=== PATIENT | male | born 1965 | race Caucasian/White ===

== ENCOUNTER 2023-03-29 20:13 | Emergency (ER) | payer MEDICARE, OTHER ==
[~2023-03-29] VITALS: Ht 170.2 cm; Wt 71.3 kg
[2023-03-29 20:41] VITALS: TEMP 98
[2023-03-29 21:16] LABS: EOSINOPHILS % (AUTO) 2.6 % (1.0-6.0); HEMATOCRIT 40.3 % (41-53); HEMOGLOBIN 13.3 g/dL (13.5-17.5); LYMPHOCYTES # (AUTO) 2.9 K/uL (1.0-4.8); MEAN CORPUSCULAR HEMOGLOBIN 27.3 pg (26.0-34.0); MEAN CORPUSCULAR VOLUME 83 fL (80-100); MONOCYTES # (AUTO) 0.9 K/uL (0.1-1.0); MONOCYTES % (AUTO) 12.9 % (2.0-9.0); NEUTROPHILS # (AUTO) 3.2 K/uL (1.8-7.7); NEUTROPHILS % (AUTO) 43.5 % (40.0-70.0); PLATELET COUNT (AUTO) 296 K/uL (150-450); RED BLOOD CELL COUNT(AUTO) 4.88 MIL/uL (4.50-5.90); RED CELL DISTRIBUTION WIDTH 16.2 % (11.5-14.5)
[2023-03-29 21:27] LABS: ANION GAP 11 mmol/L (8-16); CALCIUM, TOTAL 9.3 mg/dL (8.8-10.5); CARBON DIOXIDE 25 mmol/L (22-29); CHLORIDE 106 mmol/L (98-107); CREATININE 1.25 mg/dL (0.60-1.30); GLOMERULAR FILTR. RATE CALC 59 mL/min (>60); GLUCOSE,RANDOM 103 mg/dL (70-110); POTASSIUM 3.9 mmol/L (3.5-5.1); SODIUM SERUM 142 mmol/L (136-145)
[2023-03-29 21:33] LABS: ALANINE AMINOTRANSFERASE 71 U/L (12-78); ALBUMIN 3.6 g/dL (3.4-5.0); ALKALINE PHOSPHATASE 92 U/L (46-116); ASPARTATE AMINOTRANSFERASE 56 U/L (15-37); BILIRUBIN,TOTAL 0.2 mg/dL (0.1-1.0); TOTAL PROTEIN, SERUM 6.9 g/dL (6.4-8.2)
[2023-03-29 22:13] VITALS: BP 115/60; PULSE 60; RESP 17
== END 2023-03-29 23:12 | disposition home or self-care (01) ==
LOC: EMS 20:16
DX: F20.9 Schizophrenia, unspecified (principal); F41.9 Anxiety disorder, unspecified; Z87.891 Personal history of nicotine dependence
CPT/HCPCS: 99283; 80053; 85025; 36415; G0480

== ENCOUNTER 2025-02-01 18:37 | Inpatient (IN) | payer MEDICARE, MEDICAID ==
[~2025-02-01] VITALS: Ht 170.2 cm; Wt 83.5 kg
[2025-02-01 22:43] LABS: BASOPHILS % (AUTO) 0.8 % (0.0-2.0); EOSINOPHILS % (AUTO) 2.5 % (1.0-6.0); HEMATOCRIT 47.6 % (41-53); LYMPHOCYTES # (AUTO) 3.2 K/uL (1.0-4.8); LYMPHOCYTES % (AUTO) 35.4 % (22.0-44.0); MEAN CORPUSCULAR HEMOGLOBIN 29.8 pg (26.0-34.0); MEAN CORPUSCULAR HGB CONC 33.6 G/dL (31.0-37.0); MEAN CORPUSCULAR VOLUME 89 fL (80-100); MONOCYTES % (AUTO) 11.3 % (2.0-9.0); NEUTROPHILS # (AUTO) 4.5 K/uL (1.8-7.7); PLATELET COUNT (AUTO) 251 K/uL (150-450); RED BLOOD CELL COUNT(AUTO) 5.36 MIL/uL (4.50-5.90); RED CELL DISTRIBUTION WIDTH 14.1 % (11.5-14.5); WHITE BLOOD COUNT (AUTO) 8.9 K/uL (4.5-11.0)
[2025-02-01 22:52] LABS: ANION GAP 5 mmol/L (8-16); CALCIUM, TOTAL 9.2 mg/dL (8.8-10.5); CARBON DIOXIDE 29 mmol/L (22-29); CHLORIDE 104 mmol/L (98-107); CREATININE 1.04 mg/dL (0.60-1.30); GLOMERULAR FILTR. RATE CALC > 60 mL/min (>60); GLUCOSE,RANDOM 82 mg/dL (70-110); POTASSIUM 4.1 mmol/L (3.5-5.1); SODIUM SERUM 138 mmol/L (136-145); UREA NITROGEN, BLOOD 17 mg/dL (7-18)
[2025-02-01 23:16] LABS: APPEARANCE,URINE CLEAR (CLEAR); BILIRUBIN,URINE NEGATIVE (NEGATIVE); COLOR,URINE LIGHT YELLOW (YELLOW); GLUCOSE, URINE (UA) NEGATIVE (NEGATIVE); KETONES,URINE NEGATIVE (NEGATIVE); LEUKOCYTE ESTERASE ,URINE NEGATIVE (NEGATIVE); NITRATE,URINE NEGATIVE (NEGATIVE); OCCULT BLOOD,URINE NEGATIVE (NEGATIVE); PROTEIN,URINE NEGATIVE (NEGATIVE); UROBILINOGEN,URINE <=1.0 mg/dL (<=1.0)
[2025-02-01 23:24] LABS: ALCOHOL, URINE DRUG SCREEN NEGATIVE (NEGATIVE); AMPHET/METH SCREEN,URINE NEGATIVE (NEGATIVE); BARBITURATE SCREEN, URINE NEGATIVE (NEGATIVE); BENZODIAZEPINES SCREEN,URINE NEGATIVE (NEGATIVE); CANNABINOID SCREEN,URINE NEGATIVE (NEGATIVE); COCAINE SCREEN,URINE NEGATIVE (NEGATIVE); METHADONE SCREEN, URINE NEGATIVE (NEGATIVE); OPIATE SCREEN,URINE NEGATIVE (NEGATIVE); PHENCYCLIDINE SCREEN,URINE NEGATIVE (NEGATIVE)
[2025-02-02] MEDS: haloperidoL LACTATE 5 MG/ML VIAL IM ONE (01:48)
[2025-02-02] MEDS: LORazepam 2 MG/ML VIAL IM ONE (01:49)
[2025-02-02] MEDS: DiphenhydrAMINE HCL 50 MG/ML VIAL IM ONE (01:49)
[2025-02-02 02:12] LABS: COVID AG,FIA SOURCE NASAL SWAB
[2025-02-02 03:02] LABS: SARS-COV2 (COVID) ANTIGEN,FIA Negative (Negative)
[2025-02-02] MEDS ORDERED: LEVO137T24 PO (05:10)
[2025-02-02] MEDS ORDERED: FLUT1BLS19 IH (05:10)
[2025-02-02] MEDS ORDERED: ALBU18HF12 IH (05:10)
[2025-02-02] MEDS ORDERED: PROP10TA73 PO (05:10)
[2025-02-02] MEDS ORDERED: RISP-32 PO (05:10)
[2025-02-02] MEDS ORDERED: HALO5TAB23 PO (05:10)
[2025-02-02] MEDS ORDERED: DIVA-112 PO (05:10)
[2025-02-02] MEDS ORDERED: MELA3TAB89 PO (05:10)
[2025-02-02] MEDS ORDERED: CHOL25TA4 PO (05:10)
[2025-02-02] MEDS ORDERED: haloperidoL 5 MG TABLET PO PRN (11:30)
[2025-02-02] MEDS ORDERED: LORazepam 2 MG TABLET PO PRN (11:30)
[2025-02-02 16:11] VITALS: O2SAT 99
[2025-02-02 18:57] VITALS: BP 119/99; PULSE 66; RESP 16; TEMP 97.3; O2SAT 97
[2025-02-02] MEDS ORDERED: ALBUTEROL SULFATE HFA 90 MCG/PUFF 8 GM INHALER IH PRN (20:00)
[2025-02-02 20:10] VITALS: BP 124/82; PULSE 80; RESP 18; TEMP 97.6; O2SAT 98
[2025-02-03] MEDS: LEVOTHYROXINE SODIUM 137 MCG TABLET PO SCH (06:56)
[2025-02-03] MEDS: FLUTICASONE/VILANTEROL 200-25 MCG/INH INHALER [14] IH SCH (08:11)
[2025-02-03] MEDS: CHOLECALCIFEROL (VIT D3) 1,000 UNITS [25 MCG] TABLET PO SCH (08:11)
[2025-02-03] MEDS: PROPRANOLOL HCL 10 MG TABLET PO SCH (08:11)
[2025-02-03 08:56] VITALS: BP 110/70; PULSE 69; RESP 17; TEMP 97.9; O2SAT 97
[2025-02-03] MEDS ORDERED: MELATONIN 3 MG TABLET PO PRN (10:00)
[2025-02-03] MEDS: haloperidoL 5 MG TABLET PO SCH (10:44)
[2025-02-03] MEDS: DIVALPROEX SODIUM 500 MG DR TABLET PO SCH (20:15)
[2025-02-03] MEDS: RisperiDONE 2 MG TABLET PO SCH (20:16)
[2025-02-03] MEDS: ZOLPIDEM TARTRATE 10 MG TABLET PO PRN (21:18)
[2025-02-03 22:00] VITALS: BP 119/92; PULSE 92; RESP 16; TEMP 97.6; O2SAT 97
[2025-02-03 22:15] VITALS: BP 113/75; PULSE 85; RESP 18; TEMP 97.4; O2SAT 96
[2025-02-03 22:30] VITALS: BP 135/91; PULSE 82; RESP 18; TEMP 98.1; O2SAT 97
[2025-02-03 23:00] VITALS: BP 113/75; PULSE 79; RESP 16; TEMP 98; O2SAT 96
[2025-02-03 23:31] VITALS: BP 113/82; PULSE 73; RESP 16; TEMP 98.1; O2SAT 96
[2025-02-04 00:29] VITALS: BP 122/90; PULSE 74; RESP 17; O2SAT 96
[2025-02-04 01:30] VITALS: BP 130/90; PULSE 84; RESP 16; O2SAT 100
[2025-02-04 05:28] VITALS: BP 119/76; PULSE 76; RESP 16; TEMP 97.6; O2SAT 96
[2025-02-04 08:25] VITALS: BP 117/78; PULSE 88; RESP 16; TEMP 97.5; O2SAT 96
[2025-02-04] MEDS ORDERED: ZOLPIDEM TARTRATE 5 MG TABLET PO PRN (11:00)
[2025-02-04 12:20] VITALS: BP 110/73; PULSE 80; RESP 16; O2SAT 96
[2025-02-04 20:05] VITALS: BP 106/93; PULSE 73; RESP 17; TEMP 97.5; O2SAT 97
[2025-02-05 08:15] VITALS: BP 102/66; PULSE 72; RESP 18; TEMP 98; O2SAT 96
[2025-02-05 12:40] VITALS: BP 119/90; PULSE 76; RESP 16; O2SAT 96
[2025-02-05 20:12] VITALS: BP 125/71; PULSE 68; RESP 18; TEMP 97.6; O2SAT 96
[2025-02-05 20:16] VITALS: BP 125/71; PULSE 68; RESP 18; TEMP 97.6; O2SAT 99
[2025-02-06 08:30] VITALS: BP 119/75; PULSE 82; RESP 18; TEMP 97.7; O2SAT 99
[2025-02-06 20:22] VITALS: BP 114/91; PULSE 64; RESP 18; TEMP 97.3; O2SAT 100
[2025-02-07 08:19] VITALS: BP 103/86; PULSE 71; RESP 17; TEMP 97.8; O2SAT 96
[2025-02-07 16:41] VITALS: BP 116/83; PULSE 69; RESP 18
[2025-02-07 20:15] VITALS: BP 100/79; PULSE 65; RESP 17; TEMP 97.5; O2SAT 97
[2025-02-08 08:06] VITALS: BP 118/82; PULSE 64; RESP 18; TEMP 97.8; O2SAT 97
[2025-02-08] MEDS ORDERED: RISP-32 PO (11:32)
[2025-02-08] MEDS ORDERED: FLUT1BLS IH (11:35)
== END 2025-02-08 14:08 | DRG 885 ==
LOC: EMS 18:37 → B3A 02-02 16:11 → B2X 02-03 18:12
PROVIDERS: ADMIT Psychiatry & Neurology Child & Adolescent Psychiatry; ATTEND Psychiatry & Neurology Child & Adolescent Psychiatry
PROC: GZ52ZZZ Individual Psychotherapy, Cognitive (ICD-10-PCS; principal; 2025-02-03)
PROC: GZ56ZZZ Individual Psychotherapy, Supportive (ICD-10-PCS; 2025-02-03)
DX: F20.9 Schizophrenia, unspecified (principal); F41.9 Anxiety disorder, unspecified; F03.90 Unspecified dementia, unspecified severity, without behavioral disturbance, psychotic disturbance, mood disturbance, and anxiety; I10 Essential (primary) hypertension; Z20.822 Contact with and (suspected) exposure to COVID-19; G47.00 Insomnia, unspecified; E03.9 Hypothyroidism, unspecified; Z88.8 Allergy status to other drugs, medicaments and biological substances; Z78.1 Physical restraint status; Z87.891 Personal history of nicotine dependence
CPT/HCPCS: 80048; 80307; 81003; 85025; 87081; G0480; J1200; J1630; J2060

== ENCOUNTER 2025-05-04 20:39 | Inpatient (IN) | payer MEDICARE, MEDICAID ==
[~2025-05-04] VITALS: Ht 177.8 cm; Wt 84.4 kg
[~2025-05-04 20:39] MED LIST: CHOL25TA4 PO; DIVA-112 PO; FLUT1BLS IH; HALO5TAB23 PO; LEVO137T24 PO; PROP10TA73 PO; RISP-32 PO
[2025-05-04 20:48] VITALS: O2SAT 95
[2025-05-04 21:29] LABS: PLATELET COUNT (AUTO) 246 K/uL (150-450); RED BLOOD CELL COUNT(AUTO) 5.17 MIL/uL (4.50-5.90); RED CELL DISTRIBUTION WIDTH 14.9 % (11.5-14.5); WHITE BLOOD COUNT (AUTO) 7.6 K/uL (4.5-11.0)
[2025-05-04 21:39] LABS: CALCIUM, TOTAL 8.9 mg/dL (8.8-10.5); CREATININE 0.67 mg/dL (0.60-1.30); GLOMERULAR FILTR. RATE CALC > 60 mL/min (>60); GLUCOSE,RANDOM 84 mg/dL (70-110); SODIUM SERUM 138 mmol/L (136-145); UREA NITROGEN, BLOOD 14 mg/dL (7-18)
[2025-05-04 21:45] LABS: GLUCOMETER DEV NAME(LOC) ER.7; GLUCOSE,POINT OF CARE 87 MG/DL (70-110)
[2025-05-05 01:04] LABS: COVID AG,FIA SOURCE NASAL SWAB
[2025-05-05 01:12] LABS: SARS-COV2 (COVID) ANTIGEN,FIA Negative (Negative)
[2025-05-05 04:10] VITALS: BP 116/78; PULSE 73; RESP 18; TEMP 98; O2SAT 98
[2025-05-05] MEDS ORDERED: PNEUMOCOCCAL VACCINE POLYVALENT 0.5 ML SYRINGE [PPSV23] IM. ONE (06:30)
[2025-05-05] MEDS ORDERED: DOCUSATE SODIUM 100 MG CAPSULE PO PRN (10:15)
[2025-05-05] MEDS ORDERED: MAG HYDROX/ALUMINUM HYD/SIMETH ES 30 ML SUSPENSION UDCUP PO PRN (10:15)
[2025-05-05] MEDS ORDERED: ACETAMINOPHEN 325 MG TABLET PO PRN (10:15)
[2025-05-05] MEDS ORDERED: IBUPROFEN 400 MG TABLET PO PRN (10:15)
[2025-05-05] MEDS ORDERED: PETROLATUM,WHITE 28 GM JELLY TP PRN (10:15)
[2025-05-05] MEDS ORDERED: LOPERAMIDE HCL 2 MG CAPSULE PO PRN (10:15)
[2025-05-05] MEDS ORDERED: MAGNESIUM HYDROXIDE SUSPENSION 30 ML UDCUP PO PRN (10:15)
[2025-05-05] MEDS ORDERED: ALBUTEROL SULFATE HFA 90 MCG/PUFF 8 GM INHALER IH PRN (10:15)
[2025-05-05] MEDS ORDERED: GuaiFENesin/D-METHORPHAN [SUGAR-FREE] 200-20MG/10 ML SYRUP UDCUP PO PRN (10:15)
[2025-05-05] MEDS ORDERED: ONDANSETRON 4 MG TABLET PO PRN (10:15)
[2025-05-05] MEDS: FLUTICASONE/VILANTEROL 200-25 MCG/INH INHALER [14] IH SCH (10:26)
[2025-05-05] MEDS: LEVOTHYROXINE SODIUM 137 MCG TABLET PO SCH (10:27)
[2025-05-05] MEDS: PROPRANOLOL HCL 10 MG TABLET PO SCH (10:27)
[2025-05-05] MEDS: CHOLECALCIFEROL (VIT D3) 1,000 UNITS [25 MCG] TABLET PO SCH (10:28)
[2025-05-05 12:51] VITALS: BP 125/88; PULSE 71; RESP 18; TEMP 97.9; O2SAT 97
[2025-05-05 16:59] VITALS: BP 121/90; PULSE 70; RESP 18; O2SAT 97
[2025-05-05] MEDS: NICOTINE 14 MG/24 HOUR PATCH TD PRN (19:00)
[2025-05-05 20:06] VITALS: BP 106/73; PULSE 84; RESP 18; TEMP 97.6; O2SAT 97
[2025-05-05] MEDS: DIVALPROEX SODIUM 500 MG DR TABLET PO SCH (20:38)
[2025-05-06 07:48] LABS: PLATELET COUNT (AUTO) 253 K/uL (150-450); RED BLOOD CELL COUNT(AUTO) 5.22 MIL/uL (4.50-5.90); RED CELL DISTRIBUTION WIDTH 14.8 % (11.5-14.5); WHITE BLOOD COUNT (AUTO) 8.1 K/uL (4.5-11.0)
[2025-05-06 08:07] LABS: ASPARTATE AMINOTRANSFERASE 50 U/L (15-37); CALCIUM, TOTAL 9.0 mg/dL (8.8-10.5); CHOL/HDL RATIO 4.7 (4.2-7.3); CREATININE 0.85 mg/dL (0.60-1.30); GLOMERULAR FILTR. RATE CALC > 60 mL/min (>60); GLUCOSE,RANDOM 108 mg/dL (70-110); LDL CHOL (CALC.) 100 mg/dL (0-130); SODIUM SERUM 139 mmol/L (136-145); TOTAL PROTEIN, SERUM 7.0 g/dL (6.4-8.2); UREA NITROGEN, BLOOD 17 mg/dL (7-18)
[2025-05-06] MEDS: DIVALPROEX SODIUM 500 MG DR TABLET PO SCH (08:55)
[2025-05-06 09:46] VITALS: BP 100/83; PULSE 80; RESP 18; TEMP 97.5; O2SAT 98
[2025-05-06 13:03] VITALS: BP 105/65; PULSE 65; RESP 18
[2025-05-06 16:39] VITALS: BP 101/69; PULSE 74; RESP 18
[2025-05-06 20:00] VITALS: BP 116/91; PULSE 90; RESP 18; TEMP 98.2
[2025-05-06] MEDS: ZOLPIDEM TARTRATE 10 MG TABLET PO PRN (21:19)
[2025-05-06 21:48] VITALS: BP 106/87; PULSE 88; RESP 18
[2025-05-07 08:59] VITALS: BP 107/84; PULSE 72; RESP 18; TEMP 97.7; O2SAT 95
[2025-05-07 14:50] LABS: APPEARANCE,URINE CLEAR (CLEAR); GLUCOSE, URINE (UA) NEGATIVE (NEGATIVE); LEUKOCYTE ESTERASE ,URINE NEGATIVE (NEGATIVE); NITRATE,URINE NEGATIVE (NEGATIVE); OCCULT BLOOD,URINE NEGATIVE (NEGATIVE); PH,URINE DRUG SCREEN 6.0 (5.0-8.0); SPECIFIC GRAVITIY, URINE 1.016 (1.003-1.030)
[2025-05-07 14:57] LABS: ALCOHOL, URINE DRUG SCREEN NEGATIVE (NEGATIVE); AMPHET/METH SCREEN,URINE NEGATIVE (NEGATIVE); BARBITURATE SCREEN, URINE NEGATIVE (NEGATIVE); CANNABINOID SCREEN,URINE NEGATIVE (NEGATIVE); COCAINE SCREEN,URINE NEGATIVE (NEGATIVE); METHADONE SCREEN, URINE NEGATIVE (NEGATIVE)
[2025-05-07 20:06] VITALS: BP 115/86; PULSE 50; RESP 16; TEMP 97.6; O2SAT 98
[2025-05-08 09:28] VITALS: BP 110/81; PULSE 57; RESP 18; TEMP 97.3; O2SAT 98
[2025-05-08 20:06] VITALS: BP 112/70; PULSE 61; RESP 17; TEMP 98; O2SAT 98
[2025-05-09 09:21] VITALS: BP 99/76; PULSE 78; RESP 17; TEMP 98.3; O2SAT 98
[2025-05-09 13:30] VITALS: BP 112/73; PULSE 72; RESP 18; O2SAT 98
[2025-05-09 15:57] LABS: APPEARANCE,URINE CLEAR (CLEAR); GLUCOSE, URINE (UA) NEGATIVE (NEGATIVE); LEUKOCYTE ESTERASE ,URINE NEGATIVE (NEGATIVE); NITRATE,URINE NEGATIVE (NEGATIVE); OCCULT BLOOD,URINE NEGATIVE (NEGATIVE); SPECIFIC GRAVITIY, URINE 1.013 (1.003-1.030)
[2025-05-09 16:16] LABS: SQUAMOUS EPITHELIAL CELL,UR Rare /LPF (None Seen)
[2025-05-09 23:22] VITALS: BP 110/78; PULSE 70; RESP 19; TEMP 97.6; O2SAT 97
[2025-05-10 14:02] VITALS: BP 117/79; PULSE 63; RESP 17; TEMP 98
[2025-05-10 23:16] VITALS: BP 116/91; PULSE 72; RESP 18; TEMP 98; O2SAT 98
[2025-05-11 11:00] VITALS: BP 128/88; PULSE 71; RESP 18; TEMP 97.9; O2SAT 97
[2025-05-11 22:57] VITALS: BP 120/80; PULSE 76; RESP 19; TEMP 98.2; O2SAT 98
[2025-05-12 09:26] VITALS: BP 119/92; PULSE 90; RESP 18; TEMP 97.4; O2SAT 98
[2025-05-12 20:00] VITALS: BP 106/59; PULSE 66; RESP 18; TEMP 97.5; O2SAT 97
[2025-05-13 08:49] VITALS: BP 103/67; PULSE 77; RESP 18; TEMP 96.9; O2SAT 98
[2025-05-13 20:00] VITALS: BP 104/61; PULSE 59; RESP 19; TEMP 98; O2SAT 97
[2025-05-14 14:27] VITALS: BP 111/83; PULSE 78; RESP 17; TEMP 97.5
[2025-05-14 21:00] VITALS: BP 101/76; PULSE 61; RESP 19; TEMP 97.7
[2025-05-15 08:00] VITALS: BP 119/78; PULSE 82; RESP 18; TEMP 97.8; O2SAT 98
[2025-05-15] MEDS ORDERED: DIVA-112 PO (12:01)
[2025-05-15] MEDS ORDERED: RISP4TAB94 PO (12:01)
== END 2025-05-15 16:00 | DRG 885 ==
LOC: EMS 20:40 → 3EX 05-05 04:10
PROVIDERS: ADMIT Psychiatry & Neurology Child & Adolescent Psychiatry; ATTEND Psychiatry & Neurology Child & Adolescent Psychiatry
PROC: GZ56ZZZ Individual Psychotherapy, Supportive (ICD-10-PCS; 2025-05-05)
PROC: GZ58ZZZ Individual Psychotherapy, Cognitive-Behavioral (ICD-10-PCS; 2025-05-05)
PROC: GZ52ZZZ Individual Psychotherapy, Cognitive (ICD-10-PCS; principal; 2025-05-09)
DX: F25.0 Schizoaffective disorder, bipolar type (principal); E03.9 Hypothyroidism, unspecified; E55.9 Vitamin D deficiency, unspecified; F03.90 Unspecified dementia, unspecified severity, without behavioral disturbance, psychotic disturbance, mood disturbance, and anxiety; J44.9 Chronic obstructive pulmonary disease, unspecified; I10 Essential (primary) hypertension; F41.9 Anxiety disorder, unspecified; Z87.891 Personal history of nicotine dependence
CPT/HCPCS: 80048; 80053; 80061; 80164; 80307; 81001; 81003; 82962; 83036; 84436; 84443; 85025; 87081; 99285; G0378; G0480